=== PATIENT | male | born 1960 | race Caucasian/White ===

== ENCOUNTER 2019-12-18 14:32 | Inpatient (IN) | payer BC, SELFPAY ==
[2019-12-18] VITALS (16 sets, daily range): BP systolic 90–117; BP diastolic 57–95; PULSE 94–101; RESP 9–24; TEMP 36.4–36.8; O2SAT 94–99; BMI 37.3; BMI 37.0; BMI 37.1
--- NOTE | 2019-12-18 14:34 | EKG12_ITS ---
Test Reason : Blood Pressure : / mmHG Vent. Rate : 099 BPM Atrial Rate : 099 BPM P-R Int : 180 ms QRS Dur : 112 ms QT Int : 408 ms P-R-T Axes : 063 009 142 degrees QTc Int : 523 ms Normal sinus rhythm Septal infarct , age undetermined Marked ST abnormality, possible lateral subendocardial injury Prolonged QT Abnormal ECG Confirmed by ELI ORO, MELISA ([id number]), map editor ROB SINGH ([id number]) on 12/21/2019 11:30:18 AM Referred By: Confirmed By:MELISA BENITEZ MD
--- NOTE | 2019-12-18 14:36 | ED.VIS.GEN ---
History of Present Illness Chief Complaint: Chest Pain Informant: Patient Narrative: 59-year-old male with untreated hypertension and diabetes presents following ROSC from cardiac arrest. Patient's performed CPR on the scene and by the time EMS arrived on his roof he had regained pulses. Patient was found to be in ventricular tachycardia at this time. Patient was cardioverted at 50 J. Patient went into a normal sinus rhythm which shows significant depression in the lateral leads with a small amount of depression throughout in aVR elevation. Patient has no complaints at this time. States that he did become profoundly short of breath prior to this episode. States he is becoming more short of breath over the past 1 year. Patient is a former smoker. Patient does drink 2/5 of Tyrel Yu over the course of 3 to 4 days every week. Family history in his father side of coronary artery disease. Past Medical History - Allergies and Home Meds Allergies/Adverse Reactions: Allergies No Known Allergies Allergy (Verified 12/18/19 14:45) Prior records reviewed: Yes Past Medical History: - - HTN and DMII Lives: Spouse/ Significant Other Smoking Status: Former smoker Alcohol: None Drugs: None - Family History Maternal Family History: Reports: - - Patient denies any market maternal family history including heart disease, diabetes or cancer. Paternal Family History: Reports: Heart Disease - Patient notes a paternal family history of heart disease with history of [place] and CABG. Review of Systems General: Denies: Chills, Fever, Sweats Eyes: Denies: Visual changes - bilaterally, Diplopia ENT: Denies: Rhinorrhea, Sore throat Cardiovascular: Denies: Palpitations Respiratory: Reports: Dyspnea. Denies: Cough, Dyspnea on exertion Gastrointestinal: Denies: Abdominal pain, Nausea, Vomiting, Diarrhea, Melena, Hematochezia Genitourinary: Denies: Dysuria, Hematuria, Frequency Musculoskeletal: Denies: Back pain, Extremity Pain Skin: Denies: Rash, Wounds Neurological: Denies: Headache, Weakness, Numbness Physical Exam Inital Vital Signs reviewed: Yes General: Well nourished, Well developed, No Acute Distress Head: Normocephalic, Atraumatic Eyes: Perrl, EOMI ENT: Moist mucous membranes, No rhinorrhea Neck: Supple, Nontender Cardiovascular: Regular rate, Regular rhythm, No murmurs Respiratory: No distress, CTA bilaterally, Chest nontender Abdomen: Soft, Nontender, Nondistended, Normal bowel sounds Back: Nontender, Normal Inspection Extremities: Nontender, No edema Skin: Normal color, No rash Neurological: Alert, Oriented x3, Cranial nerves II-XII grossly intact, Normal Strength, Normal Sensation Psychological: Normal affect, Normal Mood Diagnostic/Tx/Re-eval Clinical Impression(s) from Imaging Studies Chest X-Ray 12/18/19 14:47 IMPRESSION: Mild cardiomegaly. Electronically Signed: Delroy Gruber, at 15:06 EDT , Service support , Laboratory Data 12/18/19 12/18/19 12/18/19 14:40 14:40 14:40 WBC 11.8 H RBC 5.14 Hgb 14.8 Hct 44.7 MCV 87.0 MCH 28.8 MCHC 33.1 RDW Std Deviation 42.5 RDW Coeff of Kishor 13.6 Plt Count 261 MPV 9.6 Immature Gran % (Auto) 1.000 H Neut % (Auto) 81.5 H Lymph % (Auto) 8.9 L [place] % (Auto) 5.2 Eos % (Auto) 2.6 Baso % (Auto) 0.8 Absolute Neuts (auto) 9.6 H Absolute Lymphs (auto) 1.05 Nucleated RBC % 0 Sodium 140 Potassium 3.7 Chloride 110 H Carbon Dioxide 21.0 Anion Gap 9 BUN 16 Creatinine 1.57 H Estim Creat Clear Calc 54.62 Est GFR (MDRD) Af Amer 59 L Est GFR (MDRD) Non-Af 48 L BUN/Creatinine Ratio 10.2 Glucose 343 H Calcium 8.7 Phosphorus 4.5 Magnesium 2.1 Troponin I 0.410 H - Rhythm Strip Rhythm Strip: Sinus Rhythm Rate: 99 Ectopy: None - EKG Initial EKG Interpretation: Sinus Rhythm - Sinus rhythm at 99 bpm. AL interval 180 ms. QTC of 523 ms. T depression significant in V5 and V6. Lead I, lead II, aVL also have evidence of depression and T wave inversion. - Medical Decision Making Pateint appears well nontoxic. Given his history as well as concerning prehospital EKG I had spoken with STEMI physician Dr. Kinsey who examined the patient at the bedside. He felt he would be amenable to cardiac catheterization. Patient was given aspirin. Patient transferred to the cardiac catheterization lab in stable condition. Impression: 1. Cardiac arrest 2. ROSC 3. Ventricular tachycardia - resolved with cardioversion in the field 4. ACS ED Disposition - Plan for ED Patient: Disposition: Acute Care Hospital [facility]
[2019-12-18] MEDS: Aspirin 81 MG TAB.CHEW 324 MG PO (14:44)
--- NOTE | 2019-12-18 14:47 | RAD_ITS ---
STUDY: X-RAY CHEST REASON FOR EXAM: Male, 59 years old. Pt had a cardiac arrest on a roof. did cp and pt was in vtach. pt was shocked at 50 J and achieved rosc. pt c.o increased sob prior to event TECHNIQUE: Single AP portable view of the chest. COMPARISON: None. FINDINGS: EKG electrodes are seen. The lungs are clear and expanded. There is no demonstrated pleural abnormality. There is mild cardiac enlargement. Normal mediastinum and wilbur. Normal visualized pulmonary arteries. There is atherosclerotic calcification of the aortic arch with tortuosity. There are diffuse degenerative changes of the visualized thoracic spine. Normal visualized ribs, clavicles, and shoulders. There is no demonstrated abnormality of the visualized soft tissue structures of the upper abdomen. RAD/Chest 1 View (Portable) IMPRESSION: Mild cardiomegaly. Electronically Signed: Delroy Gruber, at 15:06 EDT , Service support ,
--- NOTE | 2019-12-18 14:48 | HP.PCM_ITS ---
Problem List (1) Cardiac arrest Status: Acute (2) Ventricular tachycardia Status: Acute (3) Diabetes mellitus, type II Status: Chronic Qualifiers: Diabetes mellitus residential insulin use: without residential use Diabetes mellitus complication status: with other specified complication Qualified Code(s): E11.69 - Type 2 diabetes mellitus with other specified complication Comment: Untreated x 2 years. (4) HLD (hyperlipidemia) Status: Chronic Qualifiers: Hyperlipidemia type: unspecified Qualified Code(s): E78.5 - Hyperlipidemia, unspecified (5) Former tobacco use Status: Chronic (6) ETOH abuse Status: Chronic (7) Obesity (BMI 30-39.9) Status: Chronic History of Present Illness Date of Admission: 12/18/19 Chief Complaint: Chest pain The patient is a 59 y/o M w/ PMHx: Diabetes mellitus type II untreated x 2 years, HLD untreated, Former Heavy Tobacco use, Obesity, EtOH Abuse (2-03/01s Tyrel Nix intake who presents to the [facility] ED on 12/18/19 via EMS with history of collapsing while working on his roof, patching, noted prior severe dyspnea sensation but no chest pain, diaphoresis or nausea. Following collapse immediatley checked pulse and he was noted to be pulseless, she started CPR with ROSC and EMS was called. Upon arrival they noted VT with rate 250s with EMS synchronized cardioversion 50 J with improvement following with EKG per EMS with concern for depression in the lateral leads concerning for possible L main d isesae. Cardiology sent EMS EKG and evaluated patient upon transition to [facility] ED. In the ED upon arrival patient noted sore chest from CPR but no specific chest pain and no current dyspnea. He notes he has had dyspnea over the last ~ 1 year, primarily with exertion. 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 In the ED work-up pending upon evaluation of patient. Upon arrival patient alert and lucid. Work-up in ED included T 97.5, heart rate 1 1, BP 103/77, respiratory rate 18, 95% on 2 L nasal cannula. Past Medical History Past Medical History (Chronic Problems): Chronic Problems Diabetes mellitus, type II (Chronic) Untreated x 2 years. HLD (hyperlipidemia) (Chronic) Former tobacco use (Chronic) ETOH abuse (Chronic) Obesity (BMI 30-39.9) (Chronic) Allergies No Known Allergies Allergy (Verified 12/18/19 14:45) Home Medications: Ambulatory Orders Medication Instructions Recorded NK 12/18/19 Surgical History: - - Tonsillectomy, appendectomy, interventions for kidney stones. Psychiatric History: No pertinent psych hx Lives: Spouse/ Significant Other Smoking Status: Former smoker - Patient quit cigarette tobacco usage at age 36 but prior to this had smoked since he been a young teenager with at least 2 pack/day cigarette tobacco use. Tobacco Use: Non-smoker Alcohol: Heavy - Patient notes he drinks from Saturday to Saturday, 2 1/5ths of Tyrel Yu in this timeline. Drugs: None - *Family History Maternal History Items: - - Patient denies any market maternal family history including heart disease, diabetes or cancer. Paternal History Items: Heart Disease - Patient notes a paternal family history of heart disease with history of [place] and CABG. Review of Systems Constitutional: Reports: Anorexia, Malaise, Weakness, Fatigue. Denies: Chills, Fever, Weight Change HEENT: Denies: Head Aches, Sinus Congestion, Sinus Drainage Cardiovascular: Reports: Chest Pain. Denies: Chest Pressure, Chest Tightness, Light Headedness, Orthopnea, Palpitations, Syncope Respiratory: Reports: Shortness of Breath, Shortness of breath at rest, Shortness of breath upon exertion. Denies: Cough, Sputum production Gastrointestinal: Denies: Abdominal Pain, Nausea, Vomiting Genitourinary: Denies: Dysuria Musculoskeletal: Denies: Joint Pain, Joint Tenderness Skin: Denies: Rash, Wounds Neurological: Denies: Numbness, Tingling, Focal weakness Psychiatric: Denies: Anxiety, Depression, Homicidal Ideations, Suicidal Ideations Hematologic/ Lymphatic: Denies: Easy Bruising, Easy Bleeding VTE Information - Inpt Only VTE Present on Admission: No VTE Mechan Device Prophylaxis: SCD's VTE Pharm Prophylaxis ordered?: No Reason prophylaxis not ordered:: Medical Contraindication - Holding pending catheterization decision as may be heparin bolused. Add lovenox 12/19/19 AM if appropriate. Patient Problems: Active and Suspected Problems Cardiac arrest (Acute) Ventricular tachycardia (Acute) Subjective: Patient fatigued appearing, seated upright in the ED bed, notes chest discomfort primarily from CPR but no current pain, notes dyspnea improved. Objective: Physical Examination: General: awake, alert, oriented x 3 and cooperative, seated upright in the ED bed, notes some chest discomfort from CPR, denies any severe dyspnea at this time. Skin: normal color, turgor, no icterus, cyanosis. HEENT: AT/NC, EOMI, PERRLA, moderately dry MM, no carotid bruits or JVD noted. Lungs: CTA bilaterally, moderate effort, moderate decrease BL bases, no rales, ronchi or wheezing. Heart: Regular rate and rhythm; no gallop, rub audible. Abdomen: soft, obese, NTTP, ND, normal BS, no HSM. Extremities: no cyanosis, clubbing, or edema, hair growth noted bilateral lower extremities. Neurological: patient awake, alert, oriented x 3; cognitive function intact; pupils equally reactive to light and accomodation; cranial nerves II-XII grossly normal, moving all 4 extremities, no focal deficits, strength moderately to severely global decrease given acute presentation with recent cardiac arrest and ROSC. Psychiatric: affect appears fatigued otherwise normal, no acute evidence of depressive or anxiety feelings. - Physical Exam Vitals/I&O's: Vital Signs Temp Pulse Resp BP Pulse Ox 97.5 F L 101 H 18 103/77 95 12/18/19 14:33 12/18/19 14:33 12/18/19 14:33 12/18/19 14:33 12/18/19 14:33 Oxygen Flow Rate (L/min) 2 Oxygen Delivery Method Nasal Cannula Weight: 267 lb 3.204 oz Body Mass Index (BMI) 37.3 Assessment/Plan All Active Problems Cardiac arrest (Acute) Ventricular tachycardia (Acute) The patient is a 59 y/o M w/ PMHx: Diabetes mellitus type II untreated x 2 years, HLD untreated, Former Heavy Tobacco use, Obesity, EtOH Abuse (2-5ths Tyrel Yu [employer] intake who presents to the [facility] ED on 12/18/19 via EMS with history of collapsing while working on his roof, patching, noted prior severe dyspnea sensation but no chest pain, diaphoresis or nausea with cardiac arrest and ROSC with VT noted per EMS. 1. Exertional Dyspnea with Cardiac Arrest with ROSC with concerning EKG w/ Lateral EKG depressions: Pending ED work-up, seen upon immediate arrival, pending CBC, coags, BMP, trop, CXR. ASA administered in the ED as not given in the field. Will admit to ICU following cardiac evaluation and suspected plan of Cardiac catheterization, maintain on a monitored bed, continue serial cardiac enzymes and EKGs. Obtain magnesium level upon admission. Initiate medical management w/ asa, hold on BB/ACEI secondary to low BP in the ED, add high dose statin w/ AM FLP. Obtained ECHO. Discussed with cardiology and will defer addition of Brilinta versus Plavix once further evaluation and labs resulted as pending decision for cardiac catheterization. Maintain NPO status. FLP in AM. ASA, NG, morphine. 2. Diabetes mellitus type II, untreated: Will obtain HgbA1c, consult nutrition for education and teaching, maintain NPO until decision for catheterization, accu checks w/ ISS. 3. EtOH Abuse: Patient notes routine consumption of 2-1/5 Tyrel Yu from [employer] weekly. Will maintain on CIWA protocol, MVI, thiamine and folic acid. Pending further cardiac evaluation may need to consider phenobarbital taper additionally. Case management consulted for substance abuse. 4. Tobacco Abuse Hx: Encouraged continued cessation. 5. Hyperlipidemia: FLP pending, add high dose statin. 6. DVT Prophylaxis: SCDs, pending catheterization decision, add SC lovenox once appropriate. Inpatient E&M: [id number] Init Hosp L3
[2019-12-18 14:56] LABS: Absolute Lymphocyte Count 1.05 X10^3/uL (0.83-4.51); Absolute Neutrophil Count 9.6 X10^3/uL (2.0-7.7); Basophil# 0.09 X10^3/uL; Basophil% 0.8 % (0-1); Eosinophil# 0.31 X10^3/uL; Eosinophils% 2.6 % (0-5); Hematocrit 44.7 % (40-54); Hemoglobin 14.8 g/dL (13.0-16.5); Lymphocyte # 1.05 X10^3/ul (4.0); Lymphocyte % 8.9 % (19-41); Mean Corp Hgb Conc 33.1 g/dL (32-36); Mean Corpuscular Hgb 28.8 pg (27.0-32.0); Mean Platelet Vol. 9.6 fl (6.2-12.0); Monocyte# 0.61 X10^3/uL; Monocyte% 5.2 % (0-10); NRBC Flagged by Analyzer 0 % (0-5); Neutrophil % 81.5 % (47-70); Platelet Count 261 K/mm3 (150-450); RBC Distribution Width CV 13.6 % (11.6-14.6); RBC Distribution Width SD 42.5 fl (35.1-43.9); Red Blood Count 5.14 M/mm3 (4.6-6.2); White Blood Count 11.8 K/mm3 (4.4-11.0)
[2019-12-18 15:12] LABS: Anion Gap 9 (5-15); BUN 16 mg/dL (7-18); BUN/Creat Ratio 10.2 RATIO (10-20); Calcium,Total 8.7 mg/dL (8.5-10.1); Chloride 110 mmol/L (98-107); Creatinine, Serum 1.57 mg/dL (0.70-1.30); EST Glomerular Filtration Rate 48 mL/min (>60); Est Glom Filt Rate - Afr Amer 59 mL/min (>60); Estimated Creatinine Clearance 54.62 ml/min; Glucose 343 mg/dL (74-106); Magnesium 2.1 mg/dL (1.6-2.6); Potassium 3.7 mmol/L (3.5-5.1); Sodium Level 140 mmol/L (136-145)
[2019-12-18 15:53] LABS: Phosphorus 4.5 mg/dL (2.5-4.9)
--- NOTE | 2019-12-18 16:11 | ECHOL_ITS ---
Version 2 Reason For Study: Cardiac Arrest Procedure This was a limited 2D transthoracic echocardiogram. Exam performed in department. MMode/2D Measurements & Calculations LVIDd: 5.1 cm IVSd: 1.2 cm LVOT diam: 2.8 cm LVIDs: 4.5 cm LVPWd: 1.3 cm FS: 13.2 % LVOT area: 6.1 cm2 Doppler Measurements & Calculations Ao V2 max: 321.0 cm/sec LV V1 max: 81.7 cm/sec SV(LVOT): 105.7 ml Ao max P.2 mmHg LV V1 max P.7 mmHg Ao V2 mean: 245.3 cm/sec LV V1 mean P.3 mmHg Ao mean P.8 mmHg LV V1 mean: 53.3 cm/sec Ao V2 VTI: 71.5 cm LV V1 VTI: 17.4 cm JOSSELYN(I,D): 1.5 cm2 JOSSELYN(V,D): 1.5 cm2 Interpretation Summary Limited echo done in the holding area of the optical lab technician reveals severely depressed LV systolic function, moderate , No signicant MR. Complete echo to be done tomorrow. Ordering Physician: Mateus Kinsey Referring Physician: Brittany PCP Performed By: Arpit Patel RCS
--- NOTE | 2019-12-18 16:11 | ECHOCS_ITS ---
Reason For Study: ARRHYTHMIA Procedure This was a 2D Doppler, Color Flow transthoracic echocardiogram. The study was technically limited. Contrast injection was performed. Exam performed portable in patient room. Left Ventricle Normal LV size. Severe segmental systolic dysfunction (see wall motion). The estimated ejection fraction is 10 %. There is evidence of diastolic dysfunction. Anterio-Basal: Hypokinetic. Infero- Basal: Akinetic. Basal inferoseptal: Akinetic. Basal anteroseptal: Akinetic. Mid-Anterior : Severely Hypokinetic. Mid-Lateral : Akinetic. Mid-Posterior: Akinetic. Mid-Inferior: Akinetic. Mid- inferoseptal : Akinetic. Mid-anteroseptal : Akinetic. Anterior [place] : Severely Hypokinetic. Inferior [place] : Akinetic. Lateral [place] : Severely Hypokinetic. Septal [place] : Hypokinetic. Right Ventricle Normal RV size. Normal systolic function. Atria Normal left atrium. Normal right atrium. No doppler evidence for ASD. Mitral Valve There is no mitral annular calcification. Mild focal mitral valve calcification of the anterior leaflet. Trivial mitral valve insufficiency. Tricuspid Valve Normal tricuspid valve. Mild tricuspid valve insufficiency. Right ventricular systolic pressure estimated to be 53 mmHg. Aortic Valve Based upon the 2D echocardiographic images obtained a bicuspid aortic valve cannot be excluded. Moderate diffuse aortic valve calcification. Severe aortic stenosis. Pulmonic Valve The pulmonic valve is not well visualized. Trivial pulmonic valve insufficiency. Great Vessels Borderline dilated aortic root. Pericardium/Pleural No pericardial effusion. Medication Diluted definity 3.0ml given slow IV push to enhance endocardial definition. MMode/2D Measurements & Calculations LVIDd: 5.0 cm IVSd: 0.96 cm LVOT diam: 2.7 cm LVIDs: 4.6 cm LVPWd: 1.5 cm RVDd: 3.4 cm FS: 8.0 % LVOT area: 5.8 cm2 Ao root diam: 3.9 cm LAV(MOD-bp): 69.5 ml LA A4 area: 19.4 cm2 LAV(MOD-bp) Indexed: 29.1 ml/m2 LAV(MOD-sp2): 83.4 ml LAV(MOD-sp4): 59.2 ml LA dimension(2D): 4.0 cm RA A4 area: 20.9 cm2 Time Measurements MV dec time: 0.11 sec Doppler Measurements & Calculations MV E max tuan: 112.5 cm/sec Lat Peak E' Tuan: 6.2 cm/sec Med Peak E' Tuan: 3.5 cm/sec MV A max tuan: 47.6 cm/sec E/E' lat: 18.2 E/E' med: 32.3 MV E/A: 2.4 MV V2 max: 119.3 cm/sec Ao V2 max: 357.5 cm/sec LV V1 max: 60.5 cm/sec MV max P.7 mmHg Ao max P.5 mmHg LV V1 max P.5 mmHg MV V2 mean: 47.2 cm/sec Ao V2 mean: 273.2 cm/sec LV V1 mean P.87 mmHg MV mean P.3 mmHg Ao mean P.5 mmHg LV V1 mean: 44.4 cm/sec MV V2 VTI: 30.5 cm Ao V2 VTI: 73.6 cm LV V1 VTI: 13.2 cm MVA(VTI): 2.5 cm2 JOSSELYN(I,D): 1.0 cm2 JOSSELYN(V,D): 0.98 cm2 SV(LVOT): 76.7 ml PA V2 max: 61.9 cm/sec TR max tuan: 307.3 cm/sec TR max P.0 mmHg Interpretation Summary The study was technically limited. Contrast injection was performed. Severe segmental systolic dysfunction (see wall motion). The estimated ejection fraction is 10 %. Mild focal mitral valve calcification of the anterior leaflet. Trivial mitral valve insufficiency. Mild tricuspid valve insufficiency. Based upon the 2D echocardiographic images obtained a bicuspid aortic valve cannot be excluded. Severe aortic stenosis. Trivial pulmonic valve insufficiency. Borderline dilated aortic root. Right ventricular systolic pressure estimated to be 53 mmHg. There is evidence of diastolic dysfunction. Ordering Physician: Elvira Garrison Performed By: Demi Ramos, RDCS, RVT
--- NOTE | 2019-12-18 16:31 | PCM.CONS.C ---
Reason for Consult Date of Consultation: 12/18/19 Reason for Consultation: cardiac arrest History of Present Illness: 59-year-old male with untreated hypertension and diabetes presents following ROSC from cardiac arrest. Patient's performed CPR on the scene and by the time EMS arrived on his roof he had regained pulses. Patient was found to be in ventricular tachycardia at this time. Patient was cardioverted at 50 J. Patient went into a normal sinus rhythm which shows significant depression in the lateral leads with a small amount of depression throughout in aVR elevation. Patient has no complaints at this time. States that he did become profoundly short of breath prior to this episode. States he is becoming more short of breath over the past 1 year. Patient is a former smoker. Patient does drink 2/5 of Tyrel Yu over the course of 3 to 4 days every week. Family history in his father side of coronary artery disease. Review of systems: All else is negative except that in the HPI Past Medical History Allergies/Adverse Reactions: Allergies No Known Allergies Allergy (Verified 12/18/19 14:45) Home Medications: Ambulatory Orders Medication Instructions Recorded NK 12/18/19 Past Medical History (Chronic Problems): Chronic Problems Diabetes mellitus, type II (Chronic) Untreated x 2 years. HLD (hyperlipidemia) (Chronic) Former tobacco use (Chronic) ETOH abuse (Chronic) Obesity (BMI 30-39.9) (Chronic) Surgical History: - - Tonsillectomy, appendectomy, interventions for kidney stones. Psychiatric History: No pertinent psych hx - *Family History Maternal History Items: - - Patient denies any market maternal family history including heart disease, diabetes or cancer. Paternal History Items: Heart Disease - Patient notes a paternal family history of heart disease with history of [place] and CABG. Lives: Spouse/ Significant Other Smoking Status: Former smoker - Patient quit cigarette tobacco usage at age 36 but prior to this had smoked since he been a young teenager with at least 2 pack/day cigarette tobacco use. Tobacco Use: Non-smoker Alcohol: Heavy - Patient notes he drinks from Saturday to Saturday, 2 1/5ths of Tyrel Yu in this timeline. Drugs: None Objective: Vital Signs Temp Pulse Resp BP Pulse Ox 97.5 F L 101 H 20 H 110/75 97 12/18/19 14:50 12/18/19 14:50 12/18/19 14:50 12/18/19 14:50 12/18/19 14:50 Oxygen Flow Rate (L/min) 2 Oxygen Delivery Method Nasal Cannula Weight: 267 lb 3.204 oz Body Mass Index (BMI) 37.3 General: Awake, Alert, Oriented x 3 HEENT: Atraumatic Oral: Moist Mucosa Neck: Supple Lungs: Clear to auscultation Cardiovascular: Regular Rhythm Abdomen: Soft Extremities: No edema Psych/Mental Status: Appropriate 12/18/19 14:40: WBC 11.8 H, RBC 5.14, Hgb 14.8, Hct 44.7, MCV 87.0, MCH 28.8, MCHC 33.1, Plt Count 261, MPV 9.6, Immature Gran % (Auto) 1.000 H, Neut % (Auto) 81.5 H, Lymph % (Auto) 8.9 L, [place] % (Auto) 5.2, Eos % (Auto) 2.6, Baso % (Auto) 0.8, Absolute Neuts (auto) 9.6 H, Nucleated RBC % 0 12/18/19 14:40: Sodium 140, Potassium 3.7, Chloride 110 H, Carbon Dioxide 21.0, Anion Gap 9, BUN 16, Creatinine 1.57 H, Est GFR (MDRD) Af Amer 59 L, Est GFR (MDRD) Non-Af 48 L, BUN/Creatinine Ratio 10.2, Glucose 343 H, Calcium 8.7, Magnesium 2.1, Troponin I 0.410 H 12/18/19 14:40: Phosphorus 4.5 Rhythm: EKG: ECHO: Stress Test: Cardiac Cath: PCI: CT Surgery: Holter monitor: EPS: PPM: CXR: Chest CT Scan: Assessment/Plan 1. Cardiac arrest: Patient had lateral ST depressions. His potassium was 3.7 and his magnesium was 2.1. He was brought emergently to the cardiac [employer] Manager to see if he has significant CAD that could be the cause for his cardiac arrest. He had an 80% stenosis in the proximal LAD that was treated with drug-eluting stent. We will keep the patient on dual antiplatelet therapy, beta-lashae, statin. He will be admitted to the PCU for further management. Patient has history of alcohol abuse and he could have LV dysfunction that is out of proportion to his CAD that could explain his V. tach as well. We will check a 2D echo.
[2019-12-18 16:43] LABS: Magnesium 2.2 mg/dL (1.6-2.6)
--- NOTE | 2019-12-18 16:45 | EKG12_ITS ---
Test Reason : AM EKG Blood Pressure : / mmHG Vent. Rate : 090 BPM Atrial Rate : 090 BPM P-R Int : 194 ms QRS Dur : 114 ms QT Int : 418 ms P-R-T Axes : 040 008 146 degrees QTc Int : 511 ms Normal sinus rhythm Anterior infarct , age undetermined ST & T wave abnormality, consider lateral ischemia Prolonged QT Abnormal ECG When compared with ECG of 18-DEC-2019 14:46, MANUAL COMPARISON REQUIRED, DATA IS UNCONFIRMED Confirmed by RABIA ORO, NICOLE ([id number]), food editor ROB SINGH ([id number]) on 12/22/2019 10:47:53 AM Referred By: SHALOM Confirmed By:NICOLE CAMARILLO MD
[2019-12-18] MEDS: 0.9% Normal Saline 1,000 ML 100 ML IV ×2 (16:53→17:00)
[2019-12-18 18:11] LABS: Bedside Glucose 252 mg/dL (70-110)
[2019-12-18] MEDS: Thiamine Hydrochloride 100 MG Tablet PO (19:40)
[2019-12-18] MEDS: Famotidine 20 MG Tablet PO (21:16)
[2019-12-18] MEDS: Atorvastatin Calcium 80 MG Tablet PO (21:16)
[2019-12-18] MEDS: TICAGRELOR 90 MG TABLET PO (21:16)
[2019-12-19] VITALS (28 sets, daily range): BP systolic 79–112; BP diastolic 48–81; PULSE 84–96; RESP 12–25; TEMP 35.9–36.9; O2SAT 95–100
[2019-12-19] MEDS: 0.9% Normal Saline 1,000 ML 100 ML IV ×2 (02:01→17:48)
[2019-12-19 05:45] LABS: Absolute Lymphocyte Count 1.27 X10^3/uL (0.83-4.51); Absolute Neutrophil Count 8.2 X10^3/uL (2.0-7.7); Basophil# 0.06 X10^3/uL; Basophil% 0.6 % (0-1); Eosinophil# 0.05 X10^3/uL; Eosinophils% 0.5 % (0-5); Hematocrit 40.7 % (40-54); Hemoglobin 13.3 g/dL (13.0-16.5); Lymphocyte # 1.27 X10^3/ul (4.0); Lymphocyte % 12.3 % (19-41); Mean Corp Hgb Conc 32.7 g/dL (32-36); Mean Corpuscular Volume 88.7 fL (80-94); Mean Platelet Vol. 9.7 fl (6.2-12.0); Monocyte% 6.8 % (0-10); NRBC Flagged by Analyzer 0 % (0-5); Neutrophil # 8.18 X10^3/uL (2.7-7.7); Neutrophil % 79.5 % (47-70); Platelet Count 230 K/mm3 (150-450); RBC Distribution Width CV 13.8 % (11.6-14.6); Red Blood Count 4.59 M/mm3 (4.6-6.2); White Blood Count 10.3 K/mm3 (4.4-11.0)
--- NOTE | 2019-12-19 05:55 | EKG12_ITS ---
Test Reason : AM EKG Blood Pressure : / mmHG Vent. Rate : 092 BPM Atrial Rate : 092 BPM P-R Int : 188 ms QRS Dur : 110 ms QT Int : 408 ms P-R-T Axes : 070 101 109 degrees QTc Int : 504 ms Normal sinus rhythm Anteroseptal infarct , age undetermined Prolonged QT Abnormal ECG When compared with ECG of 19-DEC-2019 04:43, MANUAL COMPARISON REQUIRED, DATA IS UNCONFIRMED Confirmed by RABIA ORO, NICOLE ([id number]), makeup editor ROB SINGH ([id number]) on 12/22/2019 10:51:51 AM Referred By: HANS Confirmed By:NICOLE CAMARILLO MD
[2019-12-19 06:07] LABS: AST(SGOT) 113 U/L (15-37); Alanine Aminotransfer ALT/SGPT 49 U/L (16-61); Albumin, Serum 3.3 g/dL (3.2-5.0); Alkaline Phosphatase 72 U/L (45-117); Anion Gap 8 (5-15); BUN 20 mg/dL (7-18); BUN/Creat Ratio 15.9 RATIO (10-20); Calcium,Total 8.1 mg/dL (8.5-10.1); Chloride 107 mmol/L (98-107); Cholesterol 153 mg/dL (200); Creatinine, Serum 1.26 mg/dL (0.70-1.30); EST Glomerular Filtration Rate 62 mL/min (>60); Est Glom Filt Rate - Afr Amer 76 mL/min (>60); Estimated Creatinine Clearance 68.06 ml/min; Globulin 3.4 g/dL (2.2-4.2); Glucose 179 mg/dL (74-106); High Density Lipoprotein 36 mg/dL; Protein, Total 6.7 g/dL (6.4-8.2); Sodium Level 140 mmol/L (136-145); Triglycerides 133 mg/dL; Very Low Density Lipoprotein 27 mg/dL (5-40)
--- NOTE | 2019-12-19 07:17 | PN_ITS ---
Patient Problems: Active and Suspected Problems Cardiac arrest (Acute) Ventricular tachycardia (Acute) Reason for Visit: Follow-up for cardiac arrest, CA. Objective: Systolic blood pressure in 90s. Patient blood pressure has been on lower side in 90s. Map more than 65. 99% on room air. Patient denies any chest pain but has soreness due to CPR done at the scene. Patient had infrequent 3-4 beats of NSVT last night. Physical exam General: Alert, Oriented x3, Cooperative HEENT: Atraumatic, PERRLA, EOMI, Normocephalic Oral: No Gingival or Mucosal Lesions/ Ulcerations Neck: Supple, No JVD, Negative Carotid Bruits Lungs: Air entry diminished in bilateral lung bases. No crepitation/rhonchi Cardiovascular: Regular rate, Regular Rhythm, Normal S1, Normal S2, ejection systolic murmur over aortic, left second ICS with radiation to carotids Abdomen: Bowel Sounds Present, Soft, Non Tender, Non-Distended : No renal angle tenderness. No suprapubic tenderness. Extremities: No edema, Capillary Refill Less than 3 Seconds. No hematoma on the right wrist. Skin: No rashes, No breakdown Musculoskeletal: No Tenderness to Palpation of Joints or Extremities Neurological: Cranial nerves II-XII grossly intact, Deep Tendon Reflexes 2+/4 and Symmetrical, Neuro grossly intact Psych/Mental Status: Normal Affect, Appropriate. Vitals/I&O's: Vital Signs Temp Pulse Resp BP Pulse Ox 98.0 F 89 19 H 96/69 99 12/19/19 04:00 12/19/19 07:00 12/19/19 07:00 12/19/19 07:00 12/19/19 07:00 Oxygen Flow Rate (L/min) 2 Oxygen Delivery Method Room Air Weight: 265 lb 3.457 oz Body Mass Index (BMI) 37.0 Intake and Output for Last 24 Hours 12/17/19 12/18/19 12/19/19 23:59 23:59 23:59 Intake Total 558.6 / 558.6 1021.67 / 1021.67 Output Total 700 / 700 300 / 300 Balance -141.4 / -141.4 721.67 / 721.67 Laboratory Results 12/18/19 14:40: WBC 11.8 H, RBC 5.14, Hgb 14.8, Hct 44.7, MCV 87.0, MCH 28.8, MCHC 33.1, RDW Std Deviation 42.5, RDW Coeff of Kishor 13.6, Plt Count 261, MPV 9.6, Immature Gran % (Auto) 1.000 H, Neut % (Auto) 81.5 H, Lymph % (Auto) 8.9 L, [place] % (Auto) 5.2, Eos % (Auto) 2.6, Baso % (Auto) 0.8, Absolute Neuts (auto) 9.6 H, Absolute Lymphs (auto) 1.05, Nucleated RBC % 0 12/18/19 14:40: Sodium 140, Potassium 3.7, Chloride 110 H, Carbon Dioxide 21.0, Anion Gap 9, BUN 16, Creatinine 1.57 H, Estim Creat Clear Calc 54.62, Est GFR (MDRD) Af Amer 59 L, Est GFR (MDRD) Non-Af 48 L, BUN/Creatinine Ratio 10.2, Glucose 343 H, Calcium 8.7, Magnesium 2.1, Troponin I 0.410 H 12/18/19 14:40: Phosphorus 4.5 12/18/19 14:40: Magnesium 2.2 12/18/19 14:40: Hemoglobin A1c 8.0 H 12/18/19 18:00: Troponin I 4.570 H* 12/18/19 18:07: POC Glucose 252 H 12/18/19 20:15: Ethyl Alcohol 4.0 12/18/19 21:25: Troponin I 14.000 H* 12/19/19 05:20: WBC 10.3, RBC 4.59 L, Hgb 13.3, Hct 40.7, MCV 88.7, MCH 29.0, MCHC 32.7, RDW Std Deviation 44.0 H, RDW Coeff of Kishor 13.8, Plt Count 230, MPV 9.7, Immature Gran % (Auto) 0.300, Neut % (Auto) 79.5 H, Lymph % (Auto) 12.3 L, [place] % (Auto) 6.8, Eos % (Auto) 0.5, Baso % (Auto) 0.6, Absolute Neuts (auto) 8.2 H, Absolute Lymphs (auto) 1.27, Nucleated RBC % 0 12/19/19 05:20: Sodium 140, Potassium 4.0, Chloride 107, Carbon Dioxide 25.0, Anion Gap 8, BUN 20 H, Creatinine 1.26, Estim Creat Clear Calc 68.06, Est GFR (MDRD) Af Amer 76, Est GFR (MDRD) Non-Af 62, BUN/Creatinine Ratio 15.9, Glucose 179 H, Calcium 8.1 L, Total Bilirubin 0.80, AST 113 H, ALT 49, Alkaline P hosphatase 72, Total Protein 6.7, Albumin 3.3, Globulin 3.4, Albumin/Globulin Ratio 1.0, Triglycerides 133, Cholesterol 153, LDL Cholesterol 90, VLDL Cholesterol 27, HDL Cholesterol 36 L 12/19/19 : Ethyl Alcohol Cancelled Current Medications Acetaminophen (Acetaminophen 325 Mg Tablet) 650 mg PO Q6H PRN PRN PRN Reason: Pain Score 1-10/Temp > 100.7 F Al Hydroxide/Mg Hydroxide (Mag Hydrox/Al Hydrox/Simeth 30 Ml Udc) 30 ml PO Q6H PRN PRN PRN Reason: Gastric Burning Albuterol Sulfate (Albuterol 2.5 Mg/3 Ml Vial.Neb.) 2.5 mg INHALATION Q2H PRN PRN PRN Reason: Dyspnea, wheezing Aspirin (Aspirin 81 Mg Tab.Chew) 81 mg PO DAILY@0800 [facility] Atorvastatin Calcium (Atorvastatin Calcium 80 Mg Tablet) 80 mg PO QHS [facility] Last Admin: 12/18/19 21:16 Dose: 80 mg Documented by: Atropine Sulfate (Atropine Sulfate 1 Mg/10 Ml Syringe) 0.5 mg IV UD PRN PRN Reason: HR <50 bpm Famotidine (Famotidine 20 Mg Tablet) 20 mg PO BID [facility] Last Admin: 12/18/19 21:16 Dose: 20 mg Documented by: Folic Acid (Folic Acid 1 Mg Tablet) 1 mg PO DAILY@0800 [facility] Stop: 12/21/19 08:01 Guaifenesin (Guaifenesin 10 Ml Udc (200mg/10ml)) 10 ml PO Q4H PRN PRN PRN Reason: COUGH Heparin Sodium (Beef Lung) (Heparin Lock 500 Unit/5 Ml In 10 Ml Syringe) 500 unit IV UD PRN PRN Reason: HEPARIN FLUSH Sodium Chloride () 1,000 mls @ 100 mls/hr IV .Q10H [facility] Last Admin: 12/19/19 02:01 Dose: 100 mls/hr Documented by: Influenza Virus Vaccine Quadrival (Influenza Vaccine (6mos+)/Pf 0.5 Ml Syringe) 0.5 ml IM .ONCE ONE Stop: 12/19/19 10:01 Insulin Human Lispro (Insulin Lispro 100 Unit/Ml Insuln.Pen) 0 unit SC ACHS [facility]; Protocol Last Admin: 12/18/19 21:16 Dose: Not Given Documented by: Labetalol HCl (Labetalol (Prefilled) 20 Mg/4 Ml) 5 mg IV X1 PRN PRN Reason: SBP >160 when pulling sheath Stop: 12/20/19 16:40 Lorazepam (Lorazepam 1 Mg Tablet) 2 mg PO Q2H PRN PRN; Protocol PRN Reason: CIWA score > 8 but <15 Lorazepam (Lorazepam 1 Mg Tablet) 2 mg PO UD PRN; Protocol PRN Reason: CIWA score >/=15. Lorazepam (Lorazepam 2 Mg/Ml Syringe) 2 mg IV Q2H PRN PRN; Protocol PRN Reason: CIWA score > 8 but <15 Lorazepam (Lorazepam 2 Mg/Ml Syringe) 2 mg IV UD PRN; Protocol PRN Reason: CIWA score >/=15. Magnesium Hydroxide (Magnesium Hydroxide 30 Ml Udc) 30 ml PO DAILY PRN PRN PRN Reason: Constipation Melatonin (Melatonin 3 Mg Tablet) 3 mg PO QHS PRN PRN PRN Reason: INSOMNIA Morphine Sulfate (Morphine 2 Mg/Ml Syringe) 2 mg IV Q3H PRN PRN PRN Reason: Pain Score 6-10 Multivitamins/Minerals (Multivitamins,Ther W-Minerals Tablet) [facility] Nitroglycerin (Nitroglycerin (Inpatient Use) 0.4 Mg Tab.Subl) 0.4 mg SUBLINGUAL Q5M PRN PRN Reason: CARDIAC/CHEST PAIN Ondansetron HCl (Ondansetron 4 Mg/2 Ml Vial) 4 mg IV Q8H PRN PRN PRN Reason: NAUSEA/VOMITING Oxycodone HCl (Oxycodone 5 Mg Tablet) 5 mg PO Q4H PRN PRN PRN Reason: Pain Score 4-5 Prochlorperazine Edisylate (Prochlorperazine 10 Mg/2 Ml Vial) 5 mg IV Q4H PRN PRN PRN Reason: Breakthrough Nausea/Vomiting Psyllium Hydrophilic Mucilloid (Psyllium 1 Packet) 1 packet PO DAILY PRN PRN PRN Reason: Constipation Senna/Docusate Sodium (Senna/Docusate Sodium 1 Tablet) 2 tablet PO BID PRN PRN Reason: Constipation Sodium Chloride (0.9% Saline Lock 10 Ml Syringe) 10 - 40 ml IV UD PRN PRN Reason: SALINE FLUSH Sodium Chloride (0.9% Normal Saline 500 Ml Iv.Soln.) 500 ml IV BOLUS PRN PRN Reason: VASO-VAGAL PROTOCOL Thiamine HCl (Thiamine Hydrochloride 100 Mg Tablet) [facility] Stop: 12/21/19 08:01 Last Admin: 12/18/19 19:40 Dose: 100 mg Documented by: Throat Lozenges (Benzocaine/Menthol 1 Lozenge) 1 lozenge MUCOUS MEM Q2H PRN PRN PRN Reason: SORE THROAT Ticagrelor (Ticagrelor 90 Mg Tablet) 90 mg PO BID [facility] Last Admin: 12/18/19 21:16 Dose: 90 mg Documented by: STROKE Vital Signs/Narrative: Vital Signs Temp Pulse Resp BP Pulse Ox 12/19/19 07:00 89 19 H 96/69 99 12/19/19 06:00 87 21 H 80/60 L 95 12/19/19 05:00 90 18 102/78 97 12/19/19 04:00 98.0 F 90 21 H 91/55 L 98 Medical Necessity - Tobacco Use Smoking Status: Former smoker Tobacco Use: Non-smoker Assessment/Plan All Active Problems Cardiac arrest (Acute) Ventricular tachycardia (Acute) The patient is a 59 y/o M with history of Diabetes mellitus type II untreated x 2 years, HLD untreated, Former Heavy Tobacco use, Obesity, EtOH Abuse (2-5ths Tyrel Yu W-F intake who presents to the [facility] ED on 12/18/19 via EMS with history of collapse while working on the roof, cardiac arrest, CPR my and then ROSC. VT was noted per EMS and had 50 J of cardioversion patient shortness of breath gradually worsening for past 1 year. Drinks vodka at 250 fentanyl 3 to 4 days a week. 1. Cardiac Arrest with ROSC, V. tach and non-STEMI with hypotension: Twelve- lead EKG was noted to anterior CA of indeterminate age, ST depression in lateral leads. Patient was emergently taken to cardiac Dural Mechanic and LAD proximal 80% stenosis which was stented. On dual antiplatelet therapy, beta-lashae, statin. 2D echo was done. Fasting profile LDL 90, total cholesterol 153, triglyceride 133. Ethyl alcohol 4.0. Troponins are elevated maximum 14 probably from CA and CPR. 1 L of Ringer lactate fluid bolus ordered. Seen by final inspector motorcyles 2. Diabetes mellitus type II, untreated: A1c 8.0. Glucose are controlled 163. Continue Accu-Cheks and cover with sliding scale. Screw Machine Operator consult. 3. EtOH Abuse: Maintain on CIWA protocol, MVI, thiamine and folic acid. Case management consulted for substance abuse. 4. Tobacco Abuse Hx: Encouraged continued cessation. 5. Hyperlipidemia: As mentioned above. 6. DVT Prophylaxis: SCDs, pending catheterization decision, add SC lovenox once appropriate. Inpatient E&M: 19421 [facility] Hosp L3
--- NOTE | 2019-12-19 08:51 | PCM.PN.CARD ---
Subjectve: The patient is awake and alert. He states his chest feels sore from the CPR he received. He has not had any other acute chest discomfort or difficulty breathing. He has not sensed palpitations or rapid rates. Objective: Vital Signs Temp Pulse Resp BP Pulse Ox 98.0 F 89 19 H 96/69 99 12/19/19 04:00 12/19/19 07:00 12/19/19 07:00 12/19/19 07:00 12/19/19 07:00 Oxygen Flow Rate (L/min) 2 Oxygen Delivery Method Room Air Weight: 265 lb 3.457 oz Body Mass Index (BMI) 37.0 Intake and Output for Last 24 Hours 12/17/19 12/18/19 12/19/19 23:59 23:59 23:59 Intake Total 558.6 / 558.6 1021.67 / 1021.67 Output Total 700 / 700 300 / 300 Balance -141.4 / -141.4 721.67 / 721.67 General: Awake, Alert, Oriented x 3, Cooperative, No Acute Distress, Obese HEENT: Atraumatic, Normocephalic, PERRL, EOMI, Sclera Non Icteric Neck: Supple, Good ROM, No JVD Lungs: Clear to auscultation Cardiovascular: Regular Rhythm, Normal S1, Normal S2 Vascular: No Carotid Bruits Abdomen: Bowel Sounds Present, Soft Extremities: No edema Neurological: No Focal Motor or Sensory Deficit Psych/Mental Status: Appropriate 12/18/19 14:40: WBC 11.8 H, RBC 5.14, Hgb 14.8, Hct 44.7, MCV 87.0, MCH 28.8, MCHC 33.1, Plt Count 261, MPV 9.6, Immature Gran % (Auto) 1.000 H, Neut % (Auto) 81.5 H, Lymph % (Auto) 8.9 L, [place] % (Auto) 5.2, Eos % (Auto) 2.6, Baso % (Auto) 0.8, Absolute Neuts (auto) 9.6 H, Nucleated RBC % 0 12/18/19 14:40: Sodium 140, Potassium 3.7, Chloride 110 H, Carbon Dioxide 21.0, Anion Gap 9, BUN 16, Creatinine 1.57 H, Est GFR (MDRD) Af Amer 59 L, Est GFR (MDRD) Non-Af 48 L, BUN/Creatinine Ratio 10.2, Glucose 343 H, Calcium 8.7, Magnesium 2.1, Troponin I 0.410 H 12/18/19 14:40: Phosphorus 4.5 12/18/19 14:40: Magnesium 2.2 12/18/19 14:40: Hemoglobin A1c 8.0 H 12/18/19 18:00: Troponin I 4.570 H* 12/18/19 21:25: Troponin I 14.000 H* 12/19/19 05:20: WBC 10.3, RBC 4.59 L, Hgb 13.3, Hct 40.7, MCV 88.7, MCH 29.0, MCHC 32.7, Plt Count 230, MPV 9.7, Immature Gran % (Auto) 0.300, Neut % (Auto) 79.5 H, Lymph % (Auto) 12.3 L, [place] % (Auto) 6.8, Eos % (Auto) 0.5, Baso % (Auto) 0.6, Absolute Neuts (auto) 8.2 H, Nucleated RBC % 0 12/19/19 05:20: Sodium 140, Potassium 4.0, Chloride 107, Carbon Dioxide 25.0, Anion Gap 8, BUN 20 H, Creatinine 1.26, Est GFR (MDRD) Af Amer 76, Est GFR (MDRD) Non-Af 62, BUN/Creatinine Ratio 15.9, Glucose 179 H, Calcium 8.1 L, Total Bilirubin 0.80, Triglycerides 133, Cholesterol 153, LDL Cholesterol 90, VLDL Cholesterol 27, HDL Cholesterol 36 L Rhythm: Sinus rhythm; brief episodes appearing compatible with aberrancy versus nonsustained VT EKG: Sinus rhythm; anterior VA of indeterminate age cannot be excluded; ST and T wave changes-consider myocardial [id number] prominent than previous ECG Medical Necessity - Tobacco Use Smoking Status: Former smoker Tobacco Use: Non-smoker Assessment/Plan 1. Cardiopulmonary arrest The patient experienced a cardiopulmonary arrest. It is unclear whether this was related to his underlying CAD with subsequent CAD/ischemic mediated cardiac dysrhythmia versus a primary cardiac dysrhythmia. At the present time he has been diagnosed with CAD. He has undergone PCI. His cardiac rhythm is being followed. He still has evidence appearing compatible with either aberrancy versus nonsustained VT. He will continue medical therapy. This will include the initiation of low-dose beta-lashae therapy. Depending upon his rate and rhythm he may need additional antiarrhythmic therapy. He is also going to undergo further evaluation with a formal transthoracic echocardiogram to further assess his left ventricular wall motion and systolic function. 2. CAD status post RCA PCI The patient did undergo urgent/emergent diagnostic cardiac catheterization and subsequent RCA PCI. He has disease in his LCx/OM distribution as well. At the present time the patient is going to continue medical management. This includes aspirin and antiplatelet therapy and lipid-lowering therapy. An attempt will be made to initiate low-dose beta-lashae therapy. Depending upon his clinical course he may need additional PCI of the LCx/OM distribution. 3. Hyperlipidemia He will continue risk factor modification medical therapy. 4. Ethanol use There is a concern about the patient and ethanol use. There is a concern as to whether or not this may have had a negative impact on his left ventricular wall motion and systolic function. He is going to undergo formal evaluation with a transthoracic echocardiogram to assess his left ventricle. 5. Obesity The patient has been counseled on the importance of dietary adjustment/activity adjustment to try and bring his weight under better control. Comment: The patient's case has been previously discussed with Dr. Kinsey. This note was generated using a voice recognition system and there may be incorrect words, spelling or punctuation that were not noted when reviewing the office note prior to saving.
[2019-12-19] MEDS: Folic Acid 1 MG Tablet PO (08:52)
[2019-12-19] MEDS: Aspirin 81 MG TAB.CHEW PO (08:52)
[2019-12-19] MEDS: Multivitamins,Ther W-Minerals Tablet 1 TABLET PO (08:53)
[2019-12-19] MEDS: Thiamine Hydrochloride 100 MG Tablet PO ×2 (08:55→17:55)
[2019-12-19] MEDS: TICAGRELOR 90 MG TABLET PO ×2 (08:57→23:07)
[2019-12-19] MEDS: Famotidine 20 MG Tablet PO ×2 (08:57→23:07)
[2019-12-19] MEDS: Lactated Ringers 1,000 ML 999 ML IV (09:17)
[2019-12-19 09:20] LABS: Bedside Glucose 163 mg/dL (70-110)
--- NOTE | 2019-12-19 09:52 | CM.UR ---
anode crew supervisor: Met face to face with patient. Patient went unresponsive while working on his roof at home. He has no PCP. States hasn't seen a doctor in about 20 years. States he understands he'll have to start taking better care of himself. States he had been laid off and just got back to work 3 weeks ago. Preferred Pharmacy: States whatever his insurance covers--he thinks [facility] or [facility] Insurance: [facility] Prescription Benefit: Yes LNOK: , Carin Living Arrangements: Lives with in a ranch home. ADLS: independent Transportation: self. can drive while he is not allowed. DME: None HHC/SNF: No history of either and. Goal: Home DC plan: Home with NN Gave him list of PCPs. Eliseo Medley RN, CCM.
[2019-12-19] MEDS: Insulin Lispro 100 UNIT/ML INSULN.PEN SC ×3 (12:56→23:11)
[2019-12-19] MEDS: Metoprolol Tartrate 25 MG Tablet 12.5 MG PO (12:58)
[2019-12-19 13:11] LABS: Bedside Glucose 180 mg/dL (70-110)
[2019-12-19 16:48] LABS: Amphetamine Urine VISTA NEGATIVE (<1000 ng/mL); Barbiturate Urine VISTA NEGATIVE (< 200 ng/mL); Benzodiazepine Urine VISTA POSITIVE (< 200 ng/mL); Cocaine Urine VISTA NEGATIVE (< 300 ng/mL); Ecstacy Urine VISTA NEGATIVE (< 500 ng/mL); Methadone Urine VISTA NEGATIVE (< 300 ng/mL); PCP Urine VISTA NEGATIVE (< 25 ng/mL); THC Urine VISTA NEGATIVE (< 50 ng/mL); Vista UDS pH Range 5
[2019-12-19 18:01] LABS: Bedside Glucose 227 mg/dL (70-110)
--- NOTE | 2019-12-19 19:42 | NURSING ---
education re chronic illness deferred till acute illness resolving
[2019-12-19] MEDS: Atorvastatin Calcium 80 MG Tablet PO (23:07)
[2019-12-19 23:16] LABS: Bedside Glucose 198 mg/dL (70-110)
--- NOTE | 2019-12-19 23:31 | PCM.PN.BLA ---
Progress Note Notified that patient blood pressure 79/50. lungs are clear per nurse. Okay to hold amiodarone. Normal saline bolus ordered. Discuss with cardiology. STROKE Vital Signs/Narrative: Vital Signs Temp Pulse Resp BP BP Pulse Ox 12/19/19 23:05 79/60 L 12/19/19 23:00 96.6 F L 87 12 79/50 L 100 12/19/19 21:00 93 22 H 109/70 100 12/19/19 20:00 96.8 F L 90 18 100/65 100 12/19/19 19:58 91
[2019-12-19] MEDS: Amiodarone 200 MG Tablet PO (23:38)
[2019-12-20] VITALS (8 sets, daily range): BP systolic 83–143; BP diastolic 53–78; PULSE 92–113; RESP 12–23; TEMP 35.9–36.5; O2SAT 96–100
--- NOTE | 2019-12-20 03:19 | NURSING ---
Telephone report received from Maritza Del Angel RN. This RN will resume care of pt when he is brought to PCU.
--- NOTE | 2019-12-20 04:11 | NURSING ---
Report given to Isabel johnson on pcu. Pt transfered to pcu at 0400. Pt awake and alert, asked pt if he wanted this rn to update family on his move to pcu, pt declined and stated that he would call his family later this am.
[2019-12-20 06:32] LABS: Hemoglobin 14.4 g/dL (13.0-16.5); Mean Corp Hgb Conc 31.3 g/dL (32-36); Mean Corpuscular Hgb 28.7 pg (27.0-32.0); Mean Corpuscular Volume 91.6 fL (80-94); Mean Platelet Vol. 9.7 fl (6.2-12.0); Platelet Count 238 K/mm3 (150-450); RBC Distribution Width CV 13.8 % (11.6-14.6); RBC Distribution Width SD 46.1 fl (35.1-43.9); Red Blood Count 5.02 M/mm3 (4.6-6.2); White Blood Count 7.8 K/mm3 (4.4-11.0)
--- NOTE | 2019-12-20 06:35 | CB_ITS ---
Code Blue Summary Nurse report that telemetry showed ventricular tachycardia. Nurse report that upon examination of patient's was having agonal respiration. Nurse reports that patient was shocked and CPR was begun. At the time of my examination CPR was ongoing. Patient became belligerent and waded of hands. Patient was noted to still be in V. tach. Amiodarone 300 mg was ordered. Even after chest compression was stopped patient continued to be belligerent and laid on prone position. Patient was moved to a supine position. Cardiology on-call was notified. Recommendation was to give additional 150 mg of amiodarone and to start patient on amiodarone drip. 150 mg of amiodarone was given. [address] Justice came to the bedside. Report was given to truck repair service estimator who was preparing to intubate patient. Patient will be transferred to intensive care unit.
[2019-12-20 07:01] LABS: Anion Gap 14 (5-15); BUN 20 mg/dL (7-18); BUN/Creat Ratio 13.7 RATIO (10-20); Calcium,Total 8.4 mg/dL (8.5-10.1); Chloride 110 mmol/L (98-107); Creatinine, Serum 1.46 mg/dL (0.70-1.30); EST Glomerular Filtration Rate 53 mL/min (>60); Est Glom Filt Rate - Afr Amer 64 mL/min (>60); Estimated Creatinine Clearance 58.74 ml/min; Glucose 254 mg/dL (74-106); Potassium 4.3 mmol/L (3.5-5.1); Sodium Level 140 mmol/L (136-145)
[2019-12-20 07:25] LABS: Magnesium 2.3 mg/dL (1.6-2.6)
--- NOTE | 2019-12-20 07:44 | CB_ITS ---
Zulay Duff Report Responded to ZULAY DUFF on PCU this morning. On arrival, ACLS already been initiated and the patient had received 1 shock and several amiodarone boluses due to pulseless V. tach. The patient initially presented to the hospital in cardiac arrest and had to undergo emergent diagnostic cardiac catheterization with subsequent RCA PCI. The patient had been monitored in the ICU setting post procedure and was transferred to the PCU overnight. He apparently became unresponsive this morning. Following my arrival, the patient was emergently i ntubated. During my time caring for the patient in the PCU, several additional rounds of ACLS had to be delivered to the patient due to a combination of both pulseless V. tach and PEA cardiac arrest. The patient was stabilized for short periods of time only to once again go into cardiac arrest. He was subsequently transferred to the medical intensive care unit, where additional care was rendered. On arrival to the ICU, the patient continued to experience episodes of cardiac arrest, the latter of which were primarily secondary to PEA. ACLS was continued without return of spontaneous circulation. The patient's family was updated and arrived to the hospital. Following multiple additional rounds of ACLS, resuscitative efforts were discontinued and the patient was declared at 0718 on December 19. Intubation Indication: Respiratory failure Consent was obtained from: Procedure was done emergently in the setting of cardiac arrest The patient was placed in the appropriate sniffing position. Preoxygenated sedation via [id number] was provided for a minimum of 3 minutes. The patient had continuous cardiac as well as pulse oximetry monitoring during the procedure. Direct laryngoscopy was then performed using a number 4 MAC blade, which revealed a grade 2 view. A 8.0 mm endotracheal tube was visualized advancing between the cords to the level of 23 cm at the lip. The stylette was then removed and discarded. Tube placement was confirmed by fogging in the tube along with equal and bilateral breath sounds. Colorimetric change was visualized on the CO2 meter. The cuff was then inflated and the tube secured using a commercially available device. Patient Problems: Active and Suspected Problems Cardiac arrest (Acute) Ventricular tachycardia (Acute) - Physical Exam Vitals/I&O's: Vital Signs Temp Pulse Resp BP Pulse Ox 97.7 F L 113 H 22 H 143/78 H 100 12/20/19 04:09 12/20/19 06:06 12/20/19 04:09 12/20/19 06:06 12/20/19 04:09 Oxygen Flow Rate (L/min) 2 Oxygen Delivery Method Room Air Weight: 265 lb 3.457 oz Body Mass Index (BMI) 37.0 Intake and Output for Last 24 Hours 12/18/19 12/19/19 12/20/19 23:59 23:59 23:59 Intake Total 558.6 / 558.6 3705.00 / 3705.00 620 / 620 Output Total 700 / 700 600 / 600 300 / 300 Balance -141.4 / -141.4 3105.00 / 3105.00 320 / 320 General: - Laboratory Results 12/19/19 09:13: POC Glucose 163 H 12/19/19 12:53: POC Glucose 180 H 12/19/19 15:20: Urine Opiates Screen NEGATIVE, Urine Methadone Screen NEGATIVE, Ur Barbiturates Screen NEGATIVE, Ur Phencyclidine Scrn NEGATIVE, Ur Amphetamines Screen NEGATIVE, U Methamphetamin-MDMA NEGATIVE, U Benzodiazepines Scrn POSITIVE H, Urine Cocaine Screen NEGATIVE, U Cannabinoids Screen NEGATIVE, Ur Drug Screen Comment 12/19/19 15:30: Troponin I 10.600 H* 12/19/19 17:52: POC Glucose 227 H 12/19/19 23:10: POC Glucose 198 H 12/20/19 06:20: WBC 7.8, RBC 5.02, Hgb 14.4, Hct 46.0, MCV 91.6, MCH 28.7, MCHC 31.3 L, RDW Std Deviation 46.1 H, RDW Coeff of Kishor 13.8, Plt Count 238, MPV 9.7 12/20/19 06:20: Sodium 140, Potassium 4.3, Chloride 110 H, Carbon Dioxide 16.0 L , Anion Gap 14, BUN 20 H, Creatinine 1.46 H, Estim Creat Clear Calc 58.74, Est GFR (MDRD) Af Amer 64, Est GFR (MDRD) Non-Af 53 L, BUN/Creatinine Ratio 13.7, Glucose 254 H, Calcium 8.4 L, Magnesium 2.3, TSH 24.10 H Current Medications Acetaminophen (Acetaminophen 325 Mg Tablet) 650 mg PO Q6H PRN PRN PRN Reason: Pain Score 1-10/Temp > 100.7 F Al Hydroxide/Mg Hydroxide (Mag Hydrox/Al Hydrox/Simeth 30 Ml Udc) 30 ml PO Q6H PRN PRN PRN Reason: Gastric Burning Albuterol Sulfate (Albuterol 2.5 Mg/3 Ml Vial.Neb.) 2.5 mg INHALATION Q2H PRN PRN PRN Reason: Dyspnea, wheezing Amiodarone HCl (Amiodarone 200 Mg Tablet) 200 mg PO TID [facility] Last Admin: 12/19/19 23:38 Dose: 200 mg Documented by: Aspirin (Aspirin 81 Mg Tab.Chew) 81 mg PO DAILY@0800 [facility] Last Admin: 12/19/19 08:52 Dose: 81 mg Documented by: Atorvastatin Calcium (Atorvastatin Calcium 80 Mg Tablet) 80 mg PO QHS [facility] Last Admin: 12/19/19 23:07 Dose: 80 mg Documented by: Atropine Sulfate (Atropine Sulfate 1 Mg/10 Ml Syringe) 0.5 mg IV UD PRN PRN Reason: HR <50 bpm Famotidine (Famotidine 20 Mg Tablet) 20 mg PO BID [facility] Last Admin: 12/19/19 23:07 Dose: 20 mg Documented by: Folic Acid (Folic Acid 1 Mg Tablet) 1 mg PO DAILY@0800 [facility] Stop: 12/21/19 08:01 Last Admin: 12/19/19 08:52 Dose: 1 mg Documented by: Guaifenesin (Guaifenesin 10 Ml Udc (200mg/10ml)) 10 ml PO Q4H PRN PRN PRN Reason: COUGH Heparin Sodium (Beef Lung) (Heparin Lock 500 Unit/5 Ml In 10 Ml Syringe) 500 unit IV UD PRN PRN Reason: HEPARIN FLUSH Amiodarone HCl 360 mg/ (Dextrose) 200 mls @ 33.333 mls/hr CONT INF .Q6H [facility] Stop: 12/20/19 12:24 Amiodarone HCl 360 mg/ (Dextrose) 200 mls @ 16.667 mls/hr CONT INF .Q12H [facility] Stop: 12/21/19 06:24 Insulin Human Lispro (Insulin Lispro 100 Unit/Ml Insuln.Pen) 0 unit SC ACHS [facility]; Protocol Last Admin: 12/19/19 23:11 Dose: 2 unit Documented by: Labetalol HCl (Labetalol (Prefilled) 20 Mg/4 Ml) 5 mg IV X1 PRN PRN Reason: SBP >160 when pulling sheath Stop: 12/20/19 16:40 Lorazepam (Lorazepam 1 Mg Tablet) 2 mg PO Q2H PRN PRN; Protocol PRN Reason: CIWA score > 8 but <15 Lorazepam (Lorazepam 1 Mg Tablet) 2 mg PO UD PRN; Protocol PRN Reason: CIWA score >/=15. Lorazepam (Lorazepam 2 Mg/Ml Syringe) 2 mg IV Q2H PRN PRN; Protocol PRN Reason: CIWA score > 8 but <15 Lorazepam (Lorazepam 2 Mg/Ml Syringe) 2 mg IV UD PRN; Protocol PRN Reason: CIWA score >/=15. Magnesium Hydroxide (Magnesium Hydroxide 30 Ml Udc) 30 ml PO DAILY PRN PRN PRN Reason: Constipation Melatonin (Melatonin 3 Mg Tablet) 3 mg PO QHS PRN PRN PRN Reason: INSOMNIA Metoprolol Tartrate (Metoprolol Tartrate 25 Mg Tablet) 12.5 mg PO BID [facility] Last Admin: 12/19/19 23:05 Dose: Not Given Documented by: Morphine Sulfate (Morphine 2 Mg/Ml Syringe) 2 mg IV Q3H PRN PRN PRN Reason: Pain Score 6-10 Multivitamins/Minerals (Multivitamins,Ther [facility]inerals [facility]t) [facility] Last Admin: 12/19/19 08:53 Dose: 1 tablet Documented by: Nitroglycerin (Nitroglycerin (Inpatient Use) 0.4 Mg Tab.Subl) 0.4 mg SUBLINGUAL Q5M PRN PRN Reason: CARDIAC/CHEST PAIN Ondansetron HCl (Ondansetron 4 Mg/2 Ml Vial) 4 mg IV Q8H PRN PRN PRN Reason: NAUSEA/VOMITING Oxycodone HCl (Oxycodone 5 Mg Tablet) 5 mg PO Q4H PRN PRN PRN Reason: Pain Score 4-5 Prochlorperazine Edisylate (Prochlorperazine 10 Mg/2 Ml Vial) 5 mg IV Q4H PRN PRN PRN Reason: Breakthrough Nausea/Vomiting Psyllium Hydrophilic Mucilloid (Psyllium 1 Packet) 1 packet PO DAILY PRN PRN PRN Reason: Constipation Senna/Docusate Sodium (Senna/Docusate Sodium 1 Tablet) 2 tablet PO BID PRN PRN Reason: Constipation Sodium Chloride (0.9% Saline Lock 10 Ml Syringe) 10 - 40 ml IV UD PRN PRN Reason: SALINE FLUSH Sodium Chloride (0.9% Normal Saline 500 Ml Iv.Soln.) 500 ml IV BOLUS PRN PRN Reason: VASO-VAGAL PROTOCOL Thiamine HCl (Thiamine Hydrochloride 100 Mg Tablet) [facility] Stop: 12/21/19 08:01 Last Admin: 12/19/19 17:55 Dose: 100 mg Documented by: Throat Lozenges (Benzocaine/Menthol 1 Lozenge) 1 lozenge MUCOUS MEM Q2H PRN PRN PRN Reason: SORE THROAT Ticagrelor (Ticagrelor 90 Mg Tablet) 90 mg PO BID [facility] Last Admin: 12/19/19 23:07 Dose: 90 mg Documented by: Assessment/Plan All Active Problems Cardiac arrest (Acute) Ventricular tachycardia (Acute)
--- NOTE | 2019-12-20 08:10 | ED.VISSUMM ---
- ER Visit Summary Date of Service: 12/20/19 I was called to the bedside in the ICU to help with vascular access during a CODE BLUE. 59-year-old male actively receiving CPR. Patient has no IV access. I placed a 45 mm right tibial IO. Leg was prepped with alcohol allowed to dry. A tibial tuberosity was identified and IO was placed successfully in the first attempt 2 finger breaths below the tuberosity. The line was flushed the calf remains soft. Fluids were flowing and ACLS medicines given. Calf remained soft for the several minutes post placement that I was present. After procedure was done code continued and I was excused from the bedside. This note was generated with [employer] dictation software. It may contain incorrect words, spelling, and punctuation that were not noted in review of the chart prior to signing ED Disposition - Plan for ED Patient: Disposition: Acute Care [facility]
--- NOTE | 2019-12-20 08:54 | PCM.PN.INT ---
Subjective: Responded to CODE BLUE on PCU this morning. On arrival, ACLS already been initiated and the patient had received 1 shock and several amiodarone boluses due to pulseless V. tach. The patient initially presented to the hospital in cardiac arrest and had to undergo emergent diagnostic cardiac catheterization with subsequent RCA PCI. The patient had been monitored in the ICU setting post procedure and was transferred to the PCU overnight. He apparently became unresponsive this morning. Following my arrival, the patient was emergently intubated. During my time caring for the patient in the PCU, several additional rounds of ACLS had to be delivered to the patient due to a combination of both pulseless V. tach and PEA cardiac arrest. The patient was stabilized for short periods of time only to once again go into cardiac arrest. He was subsequently transferred to the medical intensive care unit, where additional care was rendered. On arrival to the ICU, the patient continued to experience episodes of cardiac arrest, the latter of which were primarily secondary to PEA. ACLS was continued without return of spontaneous circulation. The patient's family was updated and arrived to the hospital. Following multiple additional rounds of ACLS, resuscitative efforts were discontinued and the patient was declared at 0718 on December 19. Intubation Indication: Respiratory failure Consent was obtained from: Procedure was done emergently in the setting of cardiac arrest The patient was placed in the appropriate sniffing position. Preoxygenated sedation via [id number] was provided for a minimum of 3 minutes. The patient had continuous cardiac as well as pulse oximetry monitoring during the procedure. Direct laryngoscopy was then performed using a number 4 MAC blade, which revealed a grade 2 view. A 8.0 mm endotracheal tube was visualized advancing between the cords to the level of 23 cm at the lip. The stylette was then removed and discarded. Tube placement was confirmed by fogging in the tube along with equal and bilateral breath sounds. Colorimetric change was visualized on the CO2 meter. The cuff was then inflated and the tube secured using a commercially available device. Vital Signs Temp Pulse Resp BP Pulse Ox 97.7 F L 113 H 22 H 143/78 H 100 12/20/19 04:09 12/20/19 06:06 12/20/19 04:09 12/20/19 06:06 12/20/19 04:09 Oxygen Flow Rate (L/min) 2 Oxygen Delivery Method Room Air Weight: 265 lb 3.457 oz Body Mass Index (BMI) 37.0 Intake and Output for Last 24 Hours 12/18/19 12/19/19 12/20/19 23:59 23:59 23:59 Intake Total 558.6 / 558.6 3705.00 / 3705.00 620 / 620 Output Total 700 / 700 600 / 600 300 / 300 Balance -141.4 / -141.4 3105.00 / 3105.00 320 / 320 Labs (Last 48 Hours) 12/18/19 12/18/19 12/18/19 14:40 14:40 14:40 WBC 11.8 H RBC 5.14 Hgb 14.8 Hct 44.7 MCV 87.0 MCH 28.8 MCHC 33.1 RDW Std Deviation 42.5 RDW Coeff of Kishor 13.6 Plt Count 261 MPV 9.6 Immature Gran % (Auto) 1.000 H Neut % (Auto) 81.5 H Lymph % (Auto) 8.9 L [place] % (Auto) 5.2 Eos % (Auto) 2.6 Baso % (Auto) 0.8 Absolute Neuts (auto) 9.6 H Absolute Lymphs (auto) 1.05 Nucleated RBC % 0 Sodium 140 Potassium 3.7 Chloride 110 H Carbon Dioxide 21.0 Anion Gap 9 BUN 16 Creatinine 1.57 H Estim Creat Clear Calc 54.62 Est GFR (MDRD) Af Amer 59 L Est GFR (MDRD) Non-Af 48 L BUN/Creatinine Ratio 10.2 Glucose 343 H Hemoglobin A1c Calcium 8.7 Phosphorus 4.5 Magnesium 2.1 Total Bilirubin AST ALT Alkaline Phosphatase Troponin I 0.410 H Total Protein Albumin Globulin Albumin/Globulin Ratio Triglycerides Cholesterol LDL Cholesterol VLDL Cholesterol HDL Cholesterol TSH Urine Opiates Screen Urine Methadone Screen Ur Barbiturates Screen Ur Phencyclidine Scrn Ur Amphetamines Screen U Methamphetamin-MDMA U Benzodiazepines Scrn Urine Cocaine Screen U Cannabinoids Screen Ur Drug Screen Comment Ethyl Alcohol POC Glucose 12/18/19 12/18/19 12/18/19 14:40 14:40 18:00 WBC RBC Hgb Hct MCV MCH MCHC RDW Std Deviation RDW Coeff of Kishor Plt Count MPV Immature Gran % (Auto) Neut % (Auto) Lymph % (Auto) [place] % (Auto) Eos % (Auto) Baso % (Auto) Absolute Neuts (auto) Absolute Lymphs (auto) Nucleated RBC % Sodium Potassium Chloride Carbon Dioxide Anion Gap BUN Creatinine Estim Creat Clear Calc Est GFR (MDRD) Af Amer Est GFR (MDRD) Non-Af BUN/Creatinine Ratio Glucose Hemoglobin A1c 8.0 H Calcium Phosphorus Magnesium 2.2 Total Bilirubin AST ALT Alkaline Phosphatase Troponin I 4.570 H* Total Protein Albumin Globulin Albumin/Globulin Ratio Triglycerides Cholesterol LDL Cholesterol VLDL Cholesterol HDL Cholesterol TSH Urine Opiates Screen Urine Methadone Screen Ur Barbiturates Screen Ur Phencyclidine Scrn Ur Amphetamines Screen U Methamphetamin-MDMA U Benzodiazepines Scrn Urine Cocaine Screen U Cannabinoids Screen Ur Drug Screen Comment Ethyl Alcohol POC Glucose 12/18/19 12/18/19 12/18/19 18:07 20:15 21:25 WBC RBC Hgb Hct MCV MCH MCHC RDW Std Deviation RDW Coeff of Kishor Plt Count MPV Immature Gran % (Auto) Neut % (Auto) Lymph % (Auto) [place] % (Auto) Eos % (Auto) Baso % (Auto) Absolute Neuts (auto) Absolute Lymphs (auto) Nucleated RBC % Sodium Potassium Chloride Carbon Dioxide Anion Gap BUN Creatinine Estim Creat Clear Calc Est GFR (MDRD) Af Amer Est GFR (MDRD) Non-Af BUN/Creatinine Ratio Glucose Hemoglobin A1c Calcium Phosphorus Magnesium Total Bilirubin AST ALT Alkaline Phosphatase Troponin I 14.000 H* Total Protein Albumin Globulin Albumin/Globulin Ratio Triglycerides Cholesterol LDL Cholesterol VLDL Cholesterol HDL Cholesterol TSH Urine Opiates Screen Urine Methadone Screen Ur Barbiturates Screen Ur Phencyclidine Scrn Ur Amphetamines Screen U Methamphetamin-MDMA U Benzodiazepines Scrn Urine Cocaine Screen U Cannabinoids Screen Ur Drug Screen Comment Ethyl Alcohol 4.0 POC Glucose 252 H 12/19/19 12/19/19 12/19/19 05:20 05:20 09:13 WBC 10.3 RBC 4.59 L Hgb 13.3 Hct 40.7 MCV 88.7 MCH 29.0 MCHC 32.7 RDW Std Deviation 44.0 H RDW Coeff of Kishor 13.8 Plt Count 230 MPV 9.7 Immature Gran % (Auto) 0.300 Neut % (Auto) 79.5 H Lymph % (Auto) 12.3 L [place] % (Auto) 6.8 Eos % (Auto) 0.5 Baso % (Auto) 0.6 Absolute Neuts (auto) 8.2 H Absolute Lymphs (auto) 1.27 Nucleated RBC % 0 Sodium 140 Potassium 4.0 Chloride 107 Carbon Dioxide 25.0 Anion Gap 8 BUN 20 H Creatinine 1.26 Estim Creat Clear Calc 68.06 Est GFR (MDRD) Af Amer 76 Est GFR (MDRD) Non-Af 62 BUN/Creatinine Ratio 15.9 Glucose 179 H Hemoglobin A1c Calcium 8.1 L Phosphorus Magnesium Total Bilirubin 0.80 AST 113 H ALT 49 Alkaline Phosphatase 72 Troponin I Total Protein 6.7 Albumin 3.3 Globulin 3.4 Albumin/Globulin Ratio 1.0 Triglycerides 133 Cholesterol 153 LDL Cholesterol 90 VLDL Cholesterol 27 HDL Cholesterol 36 L TSH Urine Opiates Screen Urine Methadone Screen Ur Barbiturates Screen Ur Phencyclidine Scrn Ur Amphetamines Screen U Methamphetamin-MDMA U Benzodiazepines Scrn Urine Cocaine Screen U Cannabinoids Screen Ur Drug Screen Comment Ethyl Alcohol POC Glucose 163 H 12/19/19 12/19/19 12/19/19 12:53 15:20 15:30 WBC RBC Hgb Hct MCV MCH MCHC RDW Std Deviation RDW Coeff of Kishor Plt Count MPV Immature Gran % (Auto) Neut % (Auto) Lymph % (Auto) [place] % (Auto) Eos % (Auto) Baso % (Auto) Absolute Neuts (auto) Absolute Lymphs (auto) Nucleated RBC % Sodium Potassium Chloride Carbon Dioxide Anion Gap BUN Creatinine Estim Creat Clear Calc Est GFR (MDRD) Af Amer Est GFR (MDRD) Non-Af BUN/Creatinine Ratio Glucose Hemoglobin A1c Calcium Phosphorus Magnesium Total Bilirubin AST ALT Alkaline Phosphatase Troponin I 10.600 H* Total Protein Albumin Globulin Albumin/Globulin Ratio Triglycerides Cholesterol LDL Cholesterol VLDL Cholesterol HDL Cholesterol TSH Urine Opiates Screen NEGATIVE Urine Methadone Screen NEGATIVE Ur Barbiturates Screen NEGATIVE Ur Phencyclidine Scrn NEGATIVE Ur Amphetamines Screen NEGATIVE U Methamphetamin-MDMA NEGATIVE U Benzodiazepines Scrn POSITIVE H Urine Cocaine Screen NEGATIVE U Cannabinoids Screen NEGATIVE Ur Drug Screen Comment Ethyl Alcohol POC Glucose 180 H 12/19/19 12/19/19 12/19/19 17:52 23:10 Unknown WBC RBC Hgb Hct MCV MCH MCHC RDW Std Deviation RDW Coeff of Kishor Plt Count MPV Immature Gran % (Auto) Neut % (Auto) Lymph % (Auto) [place] % (Auto) Eos % (Auto) Baso % (Auto) Absolute Neuts (auto) Absolute Lymphs (auto) Nucleated RBC % Sodium Potassium Chloride Carbon Dioxide Anion Gap BUN Creatinine Estim Creat Clear Calc Est GFR (MDRD) Af Amer Est GFR (MDRD) Non-Af BUN/Creatinine Ratio Glucose Hemoglobin A1c Calcium Phosphorus Magnesium Total Bilirubin AST ALT Alkaline Phosphatase Troponin I Total Protein Albumin Globulin Albumin/Globulin Ratio Triglycerides Cholesterol LDL Cholesterol VLDL Cholesterol HDL Cholesterol TSH Urine Opiates Screen Urine Methadone Screen Ur Barbiturates Screen Ur Phencyclidine Scrn Ur Amphetamines Screen U Methamphetamin-MDMA U Benzodiazepines Scrn Urine Cocaine Screen U Cannabinoids Screen Ur Drug Screen Comment Ethyl Alcohol Cancelled POC Glucose 227 H 198 H 12/20/19 12/20/19 06:20 06:20 WBC 7.8 RBC 5.02 Hgb 14.4 Hct 46.0 MCV 91.6 MCH 28.7 MCHC 31.3 L RDW Std Deviation 46.1 H RDW Coeff of Kishor 13.8 Plt Count 238 MPV 9.7 Immature Gran % (Auto) Neut % (Auto) Lymph % (Auto) [place] % (Auto) Eos % (Auto) Baso % (Auto) Absolute Neuts (auto) Absolute Lymphs (auto) Nucleated RBC % Sodium 140 Potassium 4.3 Chloride 110 H Carbon Dioxide 16.0 L Anion Gap 14 BUN 20 H Creatinine 1.46 H Estim Creat Clear Calc 58.74 Est GFR (MDRD) Af Amer 64 Est GFR (MDRD) Non-Af 53 L BUN/Creatinine Ratio 13.7 Glucose 254 H Hemoglobin A1c Calcium 8.4 L Phosphorus Magnesium 2.3 Total Bilirubin AST ALT Alkaline Phosphatase Troponin I Total Protein Albumin Globulin Albumin/Globulin Ratio Triglycerides Cholesterol LDL Cholesterol VLDL Cholesterol HDL Cholesterol TSH 24.10 H Urine Opiates Screen Urine Methadone Screen Ur Barbiturates Screen Ur Phencyclidine Scrn Ur Amphetamines Screen U Methamphetamin-MDMA U Benzodiazepines Scrn Urine Cocaine Screen U Cannabinoids Screen Ur Drug Screen Comment Ethyl Alcohol POC Glucose Medical Necessity - Tobacco Use Smoking Status: Former smoker Tobacco Use: Non-smoker Assessment/Plan All Active Problems Cardiac arrest (Acute) Ventricular tachycardia (Acute) [id number] Critical care first hour
--- NOTE | 2019-12-20 09:14 | EXP.PCM_ITS ---
Preliminary Cause of Cardiac arrest secondary to ventricular tachycardia/dysrhythmia Date of Admission: 12/18/19 Date of : 12/20/19 - Principle Diagnosis 1. Cardiac arrest secondary to ventricular tachycardia/dysrhythmia 2. Ventricular tachycardia/dyspnea secondary to alcoholic and ischemic cardiomyopathy, coronary artery disease 3. Coronary artery disease, LAD proximal 80% stenosis with PCI, severe aortic valve stenosis, acute on chronic systolic and diastolic heart failure 4. 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 VT was noted per EMS and had 50 J of cardioversion patient shortness of breath gradually worsening for past 1 year. Drinks vodka at 250 fentanyl 3 to 4 days a week. In the morning today 12/20/2019, patient had CODE BLUE started about 6:00 AM and patient had 200 J cardioversion, epinephrine, sodium bicarb, CPR, amiodarone 300 mg bolus, intubation as per ACLS protocol. It was run by nighttime hospitalist, in coordination with choke setter and business liaison manager. Patient had several amiodarone boluses to pulseless V. tach. Patient had both pulseless V. tach and PEA cardiac arrest. Patient had return of pulse for very short time and again went into cardiac arrest which was PEA. This happened before my arrival and I was not present during the code. When I reached in ICU, patient already declared at 7:18 AM on 12/20/2019. 1. Cardiac Arrest with ventricular tachycardia/dysrhythmia and non-STEMI with hypotension: Initially patient was admitted in ICU after cardiac cath and PCI. Twelve-lead EKG was noted to anterior FL of indeterminate age, ST depression in lateral leads. Patient was emergently taken to cardiac Surgical [employer] and LAD proximal 80% stenosis which was stented. On dual antiplatelet therapy, beta- lashae, statin. Fasting profile LDL 90, total cholesterol 153, triglyceride 133. Ethyl alcohol 4.0. Troponins are elevated maximum 14, last 10.6 probably from FL and CPR. Patient also had hypotension which was managed with IV fluid resuscitation Ringer lactate. 2D finding discussed with Dr. Allen showed EF 10% with LV dilatation, global hypokinesis and severe segmental systolic dysfunction and evidence of diastolic dysfunction, in a pattern which seems more alcoholic cardiomyopathy rather than ischemic cardiomyopathy Interpretation Summary Severe segmental systolic dysfunction (see wall motion). The estimated ejection fraction is 10 %. Mild focal mitral valve calcification of the anterior leaflet. Trivial mitral valve insufficiency. Mild tricuspid valve insufficiency. Based upon the 2D echocardiographic images obtained a bicuspid aortic valve cannot be excluded. Severe aortic stenosis. Trivial pulmonic valve insufficiency. Borderline dilated aortic root. Right ventricular systolic pressure estimated to be 53 mmHg. There is evidence of diastolic dysfunction. 2. Acute on chronic heart failure, systolic and diastolic heart failure, severe aortic stenosis. As mentioned above 3. Diabetes mellitus type II, untreated: A1c 8.0. Glucose are controlled 163. Continue Accu-Cheks and cover with sliding scale. Blood sugar well controlled. 3. Chronic EtOH use and dependence: Echo findings versus to of alcoholic cardiomyopathy. Maintain on CIWA protocol, MVI, thiamine and folic acid. Case management consulted for substance abuse. 4. Tobacco Abuse Hx: Encouraged continued cessation. 5. Hyperlipidemia: As mentioned above. 6. DVT Prophylaxis: SCDs, pending catheterization decision, add SC lovenox once appropriate. Inpatient E&M: [id number] Disch Hosp
--- NOTE | 2019-12-20 10:00 | EKG12_ITS ---
Test Reason : Blood Pressure : / mmHG Vent. Rate : 233 BPM Atrial Rate : 227 BPM P-R Int : 000 ms QRS Dur : 136 ms QT Int : 240 ms P-R-T Axes : 000 245 122 degrees QTc Int : 472 ms Poor data quality, interpretation may be adversely affected Wide QRS tachycardia Non-specific intra-ventricular conduction block Right ventricular hypertrophy Inferior infarct , age undetermined Anterolateral infarct , age undetermined Abnormal ECG Confirmed by EVELIA ORO, VIRGIL ([id number]), rewrite editor MICHELLE TAVAREZ ([id number]) on 12/25/2019 1:13:24 PM Referred By: Confirmed By:JARRETT ALTAMIRANO MD
--- NOTE | 2019-12-20 11:44 | NURSING ---
0640 in ICU 3 from PCU. PCU RNs/DESIGN CELL ENGINEER, ICU RNs, household appliance assembler, Vianca Ruiz and Alejandro see code charting 0718 time of
--- NOTE | 2019-12-21 07:28 | CRPHASE1_ITS ---
Patient Communication PHII Cardiac Rehab Discussed with Patient:: No - Patient Cardiac Arrest VT Guide to Cardiac Rehab Given to Patient:: No Cardiac Rehab Facility Choice List Given to Patient:: No Risk Factors/Lifestyle Laboratory Values: Cardiac Rehab Phase I Labs Hemoglobin A1c 8.0 % (3.8-5.6) H 12/18/19 14:40 Triglycerides 133 mg/dL (-199) 12/19/19 05:20 Cholesterol 153 mg/dL (200) 12/19/19 05:20 LDL Cholesterol 90 mg/dL (0-130) 12/19/19 05:20 HDL Cholesterol 36 mg/dL (40-) L 12/19/19 05:20 Cardiac Rehabilitation Info Cardiac Rehabilitation Program Information: Cardiac Rehabilitation is important for patients like you who are recovering from a heart problem. Cardiac rehabilitation programs are recognized as integral to the con tinued care of the patient with coronary heart disease. The cardiac rehabilitation program is designed to optimize a patient's physical, psychological, and social functioning. Health child caregiver private home work in cardiac rehabilitation programs and assist you with getting the treatments you need to get stronger and healthier - like exercise, healthy eating habits, and medications. Cardiac rehabilitation has been show to help people with heart problems live longer and have better life enjoyment than people who do not go to cardiac rehabilitation. Please contact the Cardiac Rehabilitation Program at [facility] at in two weeks if you have not heard from them.
--- NOTE | 2019-12-21 17:18 | CL.I_ITS ---
Patient Name: PAULA PEREZ Study Date: 12/18/2019 Performing: Delio Kinsey MD Ht: 71 inches 180 cm : 1960 Wt: 267.1 lbs 121 kg Age: 59 Gender: male BSA: 2.38 PROCEDURE(S) PERFORMED [id number] W OR WO PTCA, SINGLE CORONARY ARTERY CLINICAL PROFILE AND CO-MORBIDITIES Indications: Cardiac Arrythmia Heart Failure: None Stress/Imaging Stress/Image Study Performed: No CAD Presentations: Other: V tach arrest CONCLUSIONS CAD as described. Successful PCI of RCA witth DEA RECOMMENDATIONS DESCRIPTION OF PROCEDURE The patient arrived to the procedure lab. The risks and benefits of the procedure as well as a full d escription of our services here and lack of surgical backup were fully explained to the patient and/o r their significant other prior to the catheterization. The Timeout was completed, verifying the miriam ect patient and procedure. The patient's procedural site was prepped and draped in the usual fashion. Local anesthetic was given subcutaneously to right radial region with Lidocaine 2%. Using a modified Seldinger technique, arterial access was obtained via the right radial artery, a 6Fr sheath was inse rted.. Left Coronary Artery selective angiography was performed in multiple views using a 5 Fr. JL3. 5 catheter. Right Coronary Artery selective angiography was then performed in multiple views using a 5 Fr. JR 4 catheterThe images were reviewed and options discussed. A decision was then made to procee d with an Intervention, IVUS or other adjunct procedure. AL 1 Guide catheter was inserted and engaged into the RCA. BMW Guide wire was advanced to the RCA . 3.5x16 Synergy Drug Eluting stent was inserted. Drug Eluting stent was advanced across the lesion i n the right coronary, proximal. Angiogram performed post stent deployment. The arterial sheath was pulled and a TR Band was applied for hemostasis. 9cc of air CORONARY ANGIOGRAPHY DOMINANCE: Right Dominant LEFT MAIN: Angiographically normal LEFT ANTERIOR DESCENDING ARTERY: Angiographically normal CIRCUMFLEX ARTERY: MID CIRC: 50 % Stenosis OM 2: Ostial - 80 % Stenosis. Small vessel. RIGHT CORONARY ARTERY: PROX RCA: 70 % Stenosis INTERVENTION INFORMATION LESION SITE: RCA (Proximal) Lesion Complexity: High/C, chronic total occlusion: No, lesion at bifurcation: No, thrombus present: No, lesion length: 12 mm, culprit lesion: Yes, Previously treated lesion: No Pre Stenosis: 70 % Pre intervention CHRISTINA flow: 3 PROCEDURE: Drug Eluting Stent Post Stenosis: 0 % Post intervention CHRISTINA flow: 3 Lesion Devices: Medtronic 6 Fr AL1.0 100cm Guide Catheter Joya .014 BMW [place] Straight 190cm Faheem Sci Synergy MR DEA 3.50x16 COMPLICATIONS No Complications PROCEDURE MEDICATIONS Versed 1 mg IV Fentanyl 50 mcg IV Oxygen: 2 L/min via nasal cannula Brilinta 180 mg PO @ 12/18/2019 16:02:04 Heparin given IA 12/18/2019 15:27:17 Heparin 7000 unit(s) IV 12/18/2019 15:46:39 Verapamil 2.5mg, Ntg 100mcgs, 3000 units of Heparin given IA 12/18/2019 15:27:17 SUMMARY OF HEMODYNAMIC DATA Time AIR REST ECG 15:11:17 AO 93/75 (84) SA 15:31:32 Signed By Delio Kinsey MD On 12/21/2019 17:17:08 Delio Kinsey MD
== END 2019-12-20 07:18 | DRG 246 ==
LOC: ED 15:06 → ICU 16:12 → PCU 12-21 14:46
PROVIDERS: Internal Medicine Cardiovascular Disease; Specialist; Admitting Provider Family Medicine; Emergency Provider Emergency Medicine; Visit Provider Internal Medicine
DX: I47.2 Ventricular tachycardia (principal); J96.00 Acute respiratory failure, unspecified whether with hypoxia or hypercapnia; I50.43 Acute on chronic combined systolic (congestive) and diastolic (congestive) heart failure; I11.0 Hypertensive heart disease with heart failure; I25.10 Atherosclerotic heart disease of native coronary artery without angina pectoris; I35.0 Nonrheumatic aortic (valve) stenosis; I25.5 Ischemic cardiomyopathy; I46.2 Cardiac arrest due to underlying cardiac condition; E11.9 Type 2 diabetes mellitus without complications; E78.5 Hyperlipidemia, unspecified; E66.9 Obesity, unspecified; Z68.37 Body mass index [BMI] 37.0-37.9, adult; Z87.891 Personal history of nicotine dependence; F10.20 Alcohol dependence, uncomplicated; Z87.442 Personal history of urinary calculi
CPT/HCPCS: 31500; 71045; 80048; 80053; 80061; 80307; 80320; 82962; 83036; 83735; 84100; 84443; 84484; 85025; 85027; 92928; 92950; 93005; 93306; 93308; 93458; 97802; 99152; 99153; 99251; 99285; J7030; J7040; J7120; Q9957; Q9967; A4216; C1769; C1887; C1894; C8929; C9600; G0463; G0480; J1327